=== PATIENT | female | born 1990 | race Hispanic/Latino ===

== ENCOUNTER 2017-11-05 00:47 | Emergency (ER) | payer BC ==
[2017-11-05] MEDS ORDERED: Sodium Chloride 0.9% 1,000 ML IV SCH (02:00)
[2017-11-05 02:14] LABS: BASO % 0.3 % (0.0-2.0); EOS # 0.2 K/uL (0.0-0.7); EOS % 1.9 % (0.0-4.0); HEMOGLOBIN 13.3 g/dL (12.0-16.0); LYMPH # 0.7 K/uL (1.0-4.3); MEAN CELL VOLUME 86.5 fl (81.0-99.0); MEAN CORPUSCULAR HEMOGLOBIN 30.3 pg (27.0-31.0); MEAN PLATELET VOLUME 8.2 fl (7.2-11.7); MONO # 1.2 K/uL (0.0-0.8); MONO % 10.4 % (0.0-10.0); NEUT # 9.3 K/uL (1.8-7.0); NEUT % 81.4 % (50.0-75.0); PLATELET COUNT 241 K/uL (130-400); RBC 4.39 Mil/uL (3.80-5.20); RED CELL DISTRIBUTION WIDTH 12.8 % (11.5-14.5); WHITE BLOOD COUNT 11.4 K/uL (4.8-10.8)
[2017-11-05 02:18] LABS: BLOOD UREA NITROGEN 8 mg/dl (7-17); CALCIUM 8.9 mg/dL (8.4-10.2); GFR AFRICAN-AMERICAN > 60; GFR NON-AFRICAN AMERICAN > 60
[2017-11-05 02:30] LABS: B-TYPE NATRIURETIC PEPTIDE 152 pg/ml (0-450)
--- NOTE | 2017-11-05 02:37 | ED PDOC ---
HPI: SOB/CHF/COPD Time Seen by Provider: 11/05/17 01:40 Chief Complaint (Nursing): Shortness Of Breath History Per: Patient History/Exam Limitations: no limitations Onset/Duration Of Symptoms: Days Current Symptoms Are (Timing): Still Present Quality: Tightness Additional Complaint(s): No PMHx presenting with shortness of breath and chest tightness, states it started while she was trying to go to bed around 8PM. States she feels tightness in the chest when taking a deep breath. States yesterday she was prescribed cipro and flagyl for a "stomach infection". PMD: Dr. Pascale Avila Past Medical History Reviewed: Historical Data, Nursing Documentation, Vital Signs Vital Signs: Last Vital Signs Temp 99.1 F 11/05/17 05:11 Pulse 98 H 11/05/17 05:11 Resp 15 11/05/17 05:11 BP 131/75 11/05/17 05:11 Pulse Ox 100 11/05/17 05:11 - Medical History PMH: Hypothyroidism - Family History Family History: States: Unknown Family Hx - Home Medications Home Medications: Ambulatory Orders Medication Instructions Recorded Albuterol HFA [Ventolin HFA 90 2 puff IH [id number] #1 puff 11/05/17 mcg/actuation (8 g)] predniSONE [predniSONE Tab] 60 mg PO DAILY #9 tab 11/05/17 - Allergies Allergies/Adverse Reactions: Allergies Allergy/AdvReac Type Severity Reaction Status Date / Time No Known Allergies Allergy Verified 11/05/17 01:19 Review of Systems ROS Statement: Except As Marked, All Systems Reviewed And Found Negative Cardiovascular: Positive for: Chest Pain Respiratory: Positive for: Shortness of Breath, Pleuritic Pain Physical Exam - Reviewed Nursing Documentation Reviewed: Yes Vital Signs Reviewed: Yes - Physical Exam Appears: Positive for: Well, Non-toxic, No Acute Distress Head Exam: Positive for: ATRAUMATIC, NORMAL INSPECTION, NORMOCEPHALIC Skin: Positive for: Normal Color, Warm, DRY Eye Exam: Positive for: EOMI, Normal appearance, PERRL ENT: Positive for: Normal ENT Inspection Neck: Positive for: Normal, Painless ROM Cardiovascular/Chest: Positive for: Regular Rate, Rhythm Respiratory: Positive for: CNT, Normal Breath Sounds Gastrointestinal/Abdominal: Positive for: Normal Exam, Soft. Negative for: Tenderness Back: Positive for: Normal Inspection Extremity: Positive for: Normal ROM Neurologic/Psych: Positive for: Alert, Oriented - Laboratory Results Result Diagrams: 11/05/17 02:00 11/05/17 02:00 - ECG ECG: Positive for: Interpreted By Me, Viewed By Me ECG Rhythm: Positive for: Normal QRS, Normal ST Segment, Sinus Rhythm O2 Sat by Pulse Oximetry: 98 Pulse Ox Interpretation: Normal Medical Decision Making Medical Decision Makin27 y/o w/ hypothyroidism presenting with pleuritic chest pain -patient is on OCP's, concerend for possible PE v. PNA v. PTX -will get labs, give toradol, re-eval 500AM EXAM: CT Abdomen and Pelvis Without Intravenous Contrast CLINICAL HISTORY: 53 years old, male; Signs and symptoms; Other: Hematuria, back pain TECHNIQUE: Axial computed tomography images of the abdomen and pelvis without intravenous contrast. All CT scans at this facility use at least one of these dose optimization techniques: automated exposure control; mA and/or kV adjustment per patient size (includes targeted exams where dose is matched to clinical indication); or iterative reconstruction. 587 images are submitted. COMPARISON: No relevant prior studies available. FINDINGS: Lung bases: Unremarkable. No mass. No consolidation. Mediastinum: Small hiatal hernia. ABDOMEN: Liver: Hepatic calcification. Gallbladder and bile ducts: Partially distended gallbladder with artifact versus gallstones. Pancreas: Unremarkable. No ductal dilation. Spleen: Left upper quadrant splenule. Unremarkable spleen. Adrenals: Unremarkable. No mass. Kidneys and ureters: Right lower pole renal cyst. No obstructing stones. No hydronephrosis. Stomach and bowel: Diverticulosis. Nonspecific areas of colonic thickening likely due to under distention versus nonspecific colitis. There is stool like appearance to the distal small bowel. This may represent slow transit. PELVIS: Appendix: Normal appendix. Bladder: Urachal remnant.Partially decompressed bladder with bladder wall thickening. Correlation with urinalysis is recommended only if clinical cystitis is suspected. Reproductive: Enlarged prostate gland. ABDOMEN and PELVIS: Intraperitoneal space: Unremarkable. No free air. No significant fluid collection. Bones/joints: No acute fracture. No dislocation. Soft tissues: Bilateral inguinal herniation of fat. ANNE SALDIVAR | Preliminary Radiology Report PROFESSOR OF POLITICAL SCIENCE (QA) DISCREPANCY? If there is a discrepancy between the preliminary and final interpretation, please notify [facility] via [email or web address]. If you do not have access to our QA portal, call our QA team at [phone] CONFIDENTIALITY STATEMENT This report is intended only for the use of the referring physician, and only in accordance with law, If you received this in error, call [phone] Page 2 of 2 Vasculature: Unremarkable. No abdominal aortic aneurysm. Lymph nodes: Unremarkable. No enlarged lymph nodes. IMPRESSION: 1.Partially decompressed bladder with bladder wall thickening. Correlation with urinalysis is recommended only if clinical cystitis is suspected Patient feeling much better, breathing easier, vitals improved. Advised patient to followup with PMD in 2 -3 days for followup. Return precautions given. Disposition - Clinical Impression Clinical Impression: Reactive airway disease - Patient ED Disposition Is Patient to be Admitted: No - Disposition Referrals: Pascale Avila DO [[facility]] - Disposition Time: 05:19 Condition: IMPROVED Prescriptions: Albuterol HFA [Ventolin HFA 90 mcg/actuation (8 g)] 2 puff IH [id number] #1 puff predniSONE [predniSONE Tab] 60 mg PO DAILY #9 tab Instructions: How to Use a Nebulizer, Adult, Breathing Exercises, Shortness of Breath (Dyspnea) Forms: [facility] ([place]an)
[2017-11-05 02:38] LABS: PARTIAL THROMBOPLASTIN TIME 26.5 Seconds (25.6-37.1)
[2017-11-05] MEDS ORDERED: Iodixanol 320 MG/ML 100 ML BOTTLE IV ONE (02:58)
[2017-11-05] MEDS ORDERED: Sodium Chloride 0.9% 50 ML IV ONE (02:58)
[2017-11-05 03:38] LABS: BANDS 3 % (0-2); EOSINOPHIL 1 % (0-7); LYMPHOCYTE 13 % (20-50); MONOCYTE 8 % (0-10); NEUTROPHIL 74 % (42-75); REACTIVE LYMPHOCYTES 1 % (0-0); TOTAL CELLS COUNTED 100
[2017-11-05 03:40] LABS: ANISOCYTOSIS SLIGHT; HYPOCHROMIC SLIGHT; PLATELET ESTIMATE NORMAL (NORMAL)
[2017-11-05 03:41] LABS: LARGE PLATELETS PRESENT
[2017-11-05 05:12] VITALS: BP 131/75; PULSE 98; RESP 15; TEMP 99.1
[2017-11-05 05:18] VITALS: O2SAT 98
--- NOTE | 2017-11-05 10:08 | RAD ---
HISTORY: sob COMPARISON: No prior. TECHNIQUE: Chest PA and lateral FINDINGS: LUNGS: No active pulmonary disease. PLEURA: No significant pleural effusion identified. No pneumothorax apparent. CARDIOVASCULAR: Normal. OSSEOUS STRUCTURES: No significant abnormalities. VISUALIZED UPPER ABDOMEN: Normal. OTHER FINDINGS: None. IMPRESSION: No acute cardiopulmonary disease appreciated.
--- NOTE | 2017-11-05 16:12 | CT ---
PROCEDURE: CT Chest with contrast (Pulmonary Angiogram) HISTORY: sob, elevated d-dimer COMPARISON: None available. TECHNIQUE: Axial computed tomography images were obtained of the chest in the pulmonary arterial phase of enhancement. Coronal and sagittal reformatted images were created and reviewed. Intravenous contrast dose: Visipaque 320, 100 cc Radiation dose: Total exam DLP = 239.93 mGy-cm. This CT exam was performed using one or more of the following dose reduction techniques: Automated exposure control, adjustment of the mA and/or kV according to patient size, and/or use of iterative reconstruction technique. FINDINGS: PULMONARY ARTERIES: Unremarkable. No pulmonary embolism. AORTA: No acute findings. No thoracic aortic aneurysm. LUNGS: Limited parabronchial cuffing is questioned which may indicate reactive airways disease or bronchitis/bronchial of viral pneumonitis. Further clinical correlation is advised. There is no pulmonary vascular congestion and CHF is unlikely. PLEURAL SPACES: Unremarkable. No effusion or pneuomothorax. HEART: Unremarkable. No cardiomegaly. No significant pericardial effusion. LYMPH NODES: No lymphadenopathy. BONES, CHEST WALL: Unremarkable. No fracture or destructive lesion OTHER FINDINGS: Unremarkable. IMPRESSION: Unremarkable CT pulmonary angiogram. No pulmonary embolus. Limited peribronchial cuffing is questioned and potential for bronchitis, reactive airways disease or viral pneumonitis is possible. Further clinical correlation is recommended. Concordant preliminary report from [facility], 11/05/2017.
== END 2017-11-05 05:31 | disposition home or self-care (01) ==
LOC: H.ER 00:47
DX: J44.9 Chronic obstructive pulmonary disease, unspecified (principal); E03.9 Hypothyroidism, unspecified
CPT/HCPCS: 71046; 71275; 80048; 81025; 83880; 84484; 85025; 85378; 85610; 85730; 96374; 99283; J1885; J7030; Q9967